=== PATIENT | male | born 1965 | race Caucasian/White ===

== ENCOUNTER 2018-07-04 12:57 | Emergency (ER) | payer OTHER ==
[~2018-07-04] VITALS: Ht 172.7 cm; Wt 70.3 kg
--- NOTE | 2018-07-04 13:10 | NUR ---
PT PROVIDED W/ WRIST BRACE.
[2018-07-04 13:12] VITALS: BP 132/65
--- NOTE | 2018-07-04 13:17 | NUR ---
MEDICALLY CLEARED FOR BOOKING. D/C IN STABLE CONDITION.
== END 2018-07-04 13:30 ==
LOC: ER 13:00
DX: S63.591A Other specified sprain of right wrist, initial encounter (principal); W22.8XXA Striking against or struck by other objects, initial encounter; Y93.71 Activity, boxing; Y92.89 Other specified places as the place of occurrence of the external cause; Y99.8 Other external cause status
CPT/HCPCS: 99283; A4606; Z7610